=== PATIENT | female | born 1990 | race Caucasian/White ===

== ENCOUNTER 2021-02-07 20:27 | Emergency (ER) | payer OTHER ==
[~2021-02-07] VITALS: Ht 162.6 cm; Wt 49.0 kg
[2021-02-08] MEDS ORDERED: ULTRAM50 MG PO (03:54)
== END 2021-02-08 04:02 | disposition home or self-care (01) ==
LOC: ER 20:27
DX: N83.291 Other ovarian cyst, right side (principal); R10.2 Pelvic and perineal pain

== ENCOUNTER 2021-04-11 11:57 | Emergency (ER) | payer OTHER ==
[~2021-04-11] VITALS: Ht 162.6 cm; Wt 49.9 kg
[~2021-04-11 11:57] MED LIST: ULTRAM50 MG PO
[2021-04-11] MEDS ORDERED: DUI500 PO (15:20)
[2021-04-11] MEDS ORDERED: MUPIROCIN15 GM TOP (15:20)
== END 2021-04-11 16:01 | disposition home or self-care (01) ==
LOC: ER 11:57
DX: H60.12 Cellulitis of left external ear (principal)